=== PATIENT | female | born 1935 | race Caucasian/White ===

== ENCOUNTER 2017-02-28 12:59 | Inpatient (IN) ==
[2017-02-28 13:39] LABS: Basophils # 0.1 K/mcL (0.0-0.2); Basophils % 0.9 %; Eosinophils # 0.1 K/mcL (0.0-0.6); Hematocrit 32.8 % (35.3-44.9); Hemoglobin 10.5 g/dL (11.5-15.4); Immature Granulocytes % 0.1 % (0-4); Lymphocytes # 1.9 K/mcL (0.6-4.6); Lymphocytes % 23.8 %; Mean Corpuscular Hemoglobin 26.1 pg (28.0-33.3); Mean Corpuscular Volume 81.4 fL (83.0-100.0); Mean Platelet Volume 9.5 fL (9.4-12.4); Monocytes # 0.5 K/mcL (0.0-1.3); Monocytes % 5.8 %; Neutrophils # 5.3 K/mcL (1.6-8.9); Platelet Count 285 K/mcL (140-400); Red Blood Count 4.03 M/mcL (3.82-4.97); Red Cell Distribution Width 16.6 % (11.5-14.5); Segmented Neutrophils % 68.4 %
[2017-02-28 13:51] LABS: BUN/Creatinine Ratio 12 (6-26); Blood Urea Nitrogen 11 mg/dL (7-20); Calcium 8.8 mg/dL (8.6-10.8); Carbon Dioxide 25 mEq/L (19-29); Chloride 109 mEq/L (98-109); Glucose 142 mg/dL (70-99); Osmolality,Calculated 292 (280-300); Sodium 140 mEq/L (136-145); eGFR For African Americans > 60 (> 60); eGFR For Non-African Americans 57 (> 60)
[2017-02-28 14:01] LABS: INR 1.1; Prothrombin Time 12.4 Seconds (9.4-12.1)
[2017-02-28 14:04] LABS: Activated Partial Thrombo Time 24.7 Seconds (26.0-36.0)
--- NOTE | 2017-02-28 14:45 | Emergency Department Note ---
Disposition Clinical Impression: Dizziness CHF (congestive heart failure) Qualifiers: Congestive heart failure type: unspecified congestive heart failure type Congestive heart failure chronicity: acute Qualified Code(s): I50.9 - Heart failure, unspecified Disposition: Admitted As Inpatient Condition: Fair Referrals: Franci Jones MD [Primary Care Provider] - Forms: Work/School Release, ED Satisfaction Letter Dizziness HPI - General Chief Complaint: ED General Medical Stated Complaint: Near Syncope Time Seen by Provider: 02/28/17 13:34 Source: patient Limitations: no limitations Nursing Notes Reviewed: Yes Vital Signs Reviewed: Yes - History of Present Illness HPI Narrative: Presents with complaint of lightheadedness which has been going on for at least several days but significantly worse this morning to the point that she almost passed out. She specifically denies any vertigo. No numbness or weakness of the extremities, slurred speech, facial droop or confusion. She has had intermittent chest pain and shortness of breath the last several months and this has been evaluated with stress testing in the past. She denies any fevers. Has had intermittent diarrhea but none in the last several days. No vomiting. She did eat breakfast and lunch today. No pain or swelling currently of the lower extremities but does get intermittent swelling of the lower extremities. Social history: No smoking. Is here with her - Related Data Allergies Allergy/AdvReac Type Severity Reaction Status Date / Time Penicillins Allergy Anaphylaxis Verified 02/28/17 13:00 Review of Systems: Constitutional: No fever Vision: No blurred vision ENT: No rhinorrhea Respiratory: No cough Allergic: No allergies : No blood in urine GI: No blood in stool Hematologic: No bruising Dermatologic: No skin rash Musculoskeletal: No pain in the extremities Neuro: No numbness of the extremities Past Medical History - Past Medical History Medical history: Reports: arthritis, COPD, coronary artery disease, hyperlipidemia, hypertension Psychiatric history: Reports: no psych history - Social History Smoking Status: Never smoker Smokeless Tobacco Status: No Alcohol use: Reports: none Drug use: Reports: none Physical Exam CONSTITUTIONAL: Well-appearing; well-nourished; A&O X3, in no apparent distress HEAD: Normocephalic; atraumatic. EYES: PERRL, EOMI, no scleral icterus NOSE: The nose is normal in appearance without rhinorrhea NECK: Supple without rigidity, no RAI RESP: Normal chest excursion with respiration; breath sounds clear and equal bilaterally; no wheezes, rhonchi, or rales CARD: Regular rhythm, without murmurs, rub or gallop ABD: Non-distended; non-tender, soft, without rigidity, rebound or guarding SKIN: Normal for age and race; warm and dry; no apparent lesions, no rash NEUROLOGICAL: Patient is alert and oriented times three. Cranial nerves III- XII are intact. Sensory and motor functions are intact. Strength is 5/5 for flexion and extension in all 4 extremities. Patellar DTRS are equal and intact. Finger to nose testing is equal and normal bilaterally. EXTREMITIES: Pulses are 2 plus and equal times 4 extremities, no peripheral edema or calf muscle pain. - General Limitations: no limitations General appearance: alert, in no apparent distress Course Vital Signs Temperature 97.6 F 02/28/17 13:01 Pulse Rate 73 02/28/17 13:01 Respiratory Rate 18 02/28/17 13:01 Blood Pressure 124/70 02/28/17 13:01 O2 Sat by Pulse Oximetry 96 02/28/17 13:01 Temperature 97.6 F 02/28/17 13:01 Pulse Rate 65 02/28/17 16:43 Respiratory Rate 18 02/28/17 16:43 Blood Pressure 147/118 02/28/17 16:43 O2 Sat by Pulse Oximetry 95 02/28/17 16:43 Oxygen Delivery Oxygen Delivery Room Air Dizziness - MDM Narrative Medical decision making narrative: Patient does have labs pending, EKG, chest x-ray. He is being watched on clinical therapist and pulse oximeter. Initial labs reviewed. CXR c/w CHF. BNP pending. 1445 I did review the EKG showing a paced rhythm with rate of 64 1447 Patient does have a chest x-ray showing congestive heart failure as well as elevated BNP and is treated with Lasix and nitroglycerin paste and I did speak with Dr. Garcia about hospital admission. Consideration of inpatient echocardiogram. 1706 - Lab Data Result diagrams: 02/28/17 13:31 02/28/17 13:31 Lab Results 02/28/17 02/28/17 02/28/17 Range/Units 13:31 13:31 13:31 WBC 7.8 (4.3-11.1) K/mcL RBC 4.03 (3.82-4.97) M/mcL Hgb 10.5 L (11.5-15.4) g/dL Hct 32.8 L (35.3-44.9) % MCV 81.4 L (83.0-100.0) fL MCH 26.1 L (28.0-33.3) pg MCHC 32.0 (31.6-35.5) g/dL RDW 16.6 H (11.5-14.5) % Plt Count 285 (140-400) K/mcL MPV 9.5 (9.4-12.4) fL Immature Gran % 0.1 (0-4) % Seg Neutrophils % 68.4 % Lymphocytes % 23.8 % Monocytes % 5.8 % Eosinophils % 1.0 % Basophils % 0.9 % Neutrophils # 5.3 (1.6-8.9) K/mcL Lymphocytes # 1.9 (0.6-4.6) K/mcL Monocytes # 0.5 (0.0-1.3) K/mcL Eosinophils # 0.1 (0.0-0.6) K/mcL Basophils # 0.1 (0.0-0.2) K/mcL PT 12.4 H (9.4-12.1) Seconds INR 1.1 APTT 24.7 L (26.0-36.0) Seconds Sodium 140 (136-145) mEq/L Potassium 4.0 (3.5-4.5) mEq/L Chloride 109 (98-109) mEq/L Carbon Dioxide 25 (19-29) mEq/L BUN 11 (7-20) mg/dL Creatinine 0.94 (0.57-1.11) mg/dL Est GFR ( Amer) > 60 (> 60) Est GFR (Non-Af Amer) 57 L (> 60) BUN/Creatinine Ratio 12 (6-26) Glucose 142 H (70-99) mg/dL Calculated Osmolality 292 (280-300) Calcium 8.8 (8.6-10.8) mg/dL Troponin I (0-0.03) ng/mL B-Natriuretic Peptide (0-100) pg/mL 02/28/17 02/28/17 Range/Units 13:31 13:31 WBC (4.3-11.1) K/mcL RBC (3.82-4.97) M/mcL Hgb (11.5-15.4) g/dL Hct (35.3-44.9) % MCV (83.0-100.0) fL MCH (28.0-33.3) pg MCHC (31.6-35.5) g/dL RDW (11.5-14.5) % Plt Count (140-400) K/mcL MPV (9.4-12.4) fL Immature Gran % (0-4) % Seg Neutrophils % % Lymphocytes % % Monocytes % % Eosinophils % % Basophils % % Neutrophils # (1.6-8.9) K/mcL Lymphocytes # (0.6-4.6) K/mcL Monocytes # (0.0-1.3) K/mcL Eosinophils # (0.0-0.6) K/mcL Basophils # (0.0-0.2) K/mcL PT (9.4-12.1) Seconds INR APTT (26.0-36.0) Seconds Sodium (136-145) mEq/L Potassium (3.5-4.5) mEq/L Chloride (98-109) mEq/L Carbon Dioxide (19-29) mEq/L BUN (7-20) mg/dL Creatinine (0.57-1.11) mg/dL Est GFR ( Amer) (> 60) Est GFR (Non-Af Amer) (> 60) BUN/Creatinine Ratio (6-26) Glucose (70-99) mg/dL Calculated Osmolality (280-300) Calcium (8.6-10.8) mg/dL Troponin I 0.01 (0-0.03) ng/mL B-Natriuretic Peptide 347 H (0-100) pg/mL
[2017-02-28] MEDS ORDERED: Furosemide 40 MG/4 ML VIAL IVP ONE (16:45)
[2017-02-28] MEDS ORDERED: Nitroglycerin 1 INCH/GM PACKET TP ONE (16:45)
[2017-02-28] MEDS ORDERED: *HR* Morphine 2 MG/ML SYRINGE IVP PRN (17:31)
[2017-02-28] MEDS ORDERED: Naloxone 0.4 MG/ML INJ IVP PRN (17:31)
[2017-02-28] MEDS ORDERED: Ondansetron 4 MG/2 ML VIAL IVP PRN (17:31)
[2017-02-28] MEDS ORDERED: Nitroglycerin 0.4 MG TAB.SUBL SL PRN (17:37)
[2017-02-28] MEDS ORDERED: Aspirin 81 MG TAB.CHEW PO SCH (17:45)
[2017-02-28 17:49] LABS: Magnesium 1.6 mg/dL (1.6-2.6)
[2017-02-28] MEDS ORDERED: Aspirin 325 MG TABLET ONE (18:34)
[2017-02-28] MEDS: *HR* Heparin 5,000 UNIT/ML VIAL SQ SCH (18:43)
[2017-02-28] MEDS: Famotidine 20 MG/2 ML VIAL IVP SCH (18:44)
[2017-02-28] MEDS: Aspirin 325 MG TABLET PO SCH (18:44)
[2017-02-28] MEDS: Valsartan 80 MG TABLET PO SCH (19:12)
--- NOTE | 2017-02-28 19:30 | Internal Med History&Physical ---
Date of Encounter: 02/28/17 Time of Encounter: 18:00 Assessment and Plan (1) Dizziness Current visit: Yes Status: Acute Near syncope with dizziness and lightheadedness - unclear etiology Possible arrhythmia or TIA or vertigo EKG - paced rhythm no acute ST-T changes Troponin - negative, we will trend Chest x-ray - pulmonary edema Echocardiogram pending, CT head - pending Labs in a.m. Cardiac telemetry (2) CHF (congestive heart failure) Current visit: Yes Status: Acute New onset CHF unspecified with pulmonary edema Continue IV Lasix, metoprolol, started valsartan today Restriction, strict I's and O's, daily weight BN peptide of 347 Troponin 0.01, will trend EKG paced rhythm no acute ST-T changes Cardiac telemetry Qualifiers: Congestive heart failure type: unspecified congestive heart failure type Congestive heart failure chronicity: acute Qualified Code(s): I50.9 - Heart failure, unspecified (3) CAD (coronary artery disease) Current visit: Yes Status: Chronic Coronary artery disease status post stents, stable Continue aspirin and statin Qualifiers: Coronary Disease-Associated Artery/Lesion type: unspecified vessel or lesion type [place] vs. transplanted heart: [place] heart Associated angina: without angina Qualified Code(s): I25.10 - Atherosclerotic heart disease of [place] coronary artery without angina pectoris (4) Hypertension Current visit: Yes Status: Chronic Essential hypertension, controlled, continue home meds, monitor Qualifiers: Hypertension type: essential hypertension Qualified Code(s): I10 - Essential (primary) hypertension (5) COPD (chronic obstructive pulmonary disease) Current visit: Yes Status: Chronic Not in exacerbation, stable Continue Flovent Qualifiers: COPD type: unspecified COPD Qualified Code(s): J44.9 - Chronic obstructive pulmonary disease, unspecified (6) Hyperlipidemia Current visit: Yes Status: Chronic Continue statin Qualifiers: Hyperlipidemia type: unspecified Qualified Code(s): E78.5 - Hyperlipidemia , unspecified (7) DVT prophylaxis Current visit: Yes Status: Acute Continue heparin subcutaneous Internal Medicine - H&P: HPI Chief complaint: Dizziness Admitted From: Emergency Dept History of present illness: Ms. Le is a 82 year old female with past medical history of COPD, arthritis , coronary artery disease, hyperlipidemia, hypertension and status post pacemaker. She presents to the ED with complaints of dizziness and lightheadedness. Patient states symptoms have been going on for the past few days but got worse this morning where she almost passed out. No syncope. Patient denies any weakness in extremities or slurred speech or facial droop and confusion. She did have some mild chest pain and mild shortness of breath, but this is now resolved. Patient denies abdominal pain denies vomiting or diarrhea or any other symptoms. Patient says symptoms are worse when she is walking or trying to stand up. Symptoms seemed to gradually resolve on their own. On examination patient is awake and alert. Not in any distress. Able to answer questions appropriately. and son are at bedside. Patient is being admitted for dizziness and lightheadedness and near syncope. She will need cardiac workup. Patient and family have been explained about her condition and plan of care. Understood and agreed. No unanswered questions. CODE STATUS full code. Past Med Surg Social Fam HX - Past Medical History Medical history: arthritis, COPD, coronary artery disease, hyperlipidemia, hypertension, migraine Psychiatric history: no psych history - Past Surgical History Surgical History: appendectomy, cholecystectomy, hysterectomy - Social History Smoking Status: Never smoker Smokeless Tobacco Status: No Alcohol use: none Drug use: none Internal Medicine - H&P: Meds ALPRAZolam [Xanax 1 MG Tablet] 1 mg PO BID 02/28/17 [History] Aspirin 325 mg PO HS 02/28/17 [History] Atorvastatin Calcium [Lipitor] 20 mg PO HS 02/28/17 [History] Diltiazem HCl [Diltiazem 24Hr Cd] 180 mg PO DAILY 02/28/17 [History] Donepezil HCl [Aricept] 5 mg PO HS 02/28/17 [History] FLUoxetine HCl [Fluoxetine HCl] 10 mg PO QAM 02/28/17 [History] Fluticasone Propionate [Flovent Hfa] 2 puff IH BID 02/28/17 [History] Furosemide [Lasix] 20 mg PO DAILY PRN 02/28/17 [History] Metoprolol [Lopressor] 12.5 mg PO BID 02/28/17 [History] [place]-3/Dha/Epa/Fish Oil [Fish Oil 1,000 mg Softgel] 1,000 mg PO DAILY 02/28/17 [History] Omeprazole [PriLOSEC] 20 mg PO DAILY 02/28/17 [History] Potassium Chloride [K-Tab ER] 20 meq PO DAILY 02/28/17 [History] Allergies Penicillins Allergy (Verified 02/28/17 13:00) Anaphylaxis All Systems PM: A 10-system review of systems was performed and is negative for pertinent findings except as documented above in the HPI. - Constitutional Constitutional: as per HPI, weakness, no fatigue, no fever(s) - EENT Eyes: no blurry vision - Cardiovascular Cardiovascular ROS IM: other (Near syncope), no chest pain, no diaphoresis, no dyspnea, no dyspnea on exertion, no orthopnea - Respiratory Respiratory: no cough, no dyspnea, no hemoptysis, no dyspnea on exertion, no chest congestion - Gastrointestinal Gastrointestinal: no abdominal pain, no cramping, no diarrhea, no nausea, no vomiting - Neurological Neurological ROS: dizziness, no abnormal gait, no abnormal speech, no loss of vision, no numbness, no tingling - Constitutional Vitals: Temp Pulse Resp BP Pulse Ox 97.6 F 64 16 125/76 94 02/28/17 18:30 02/28/17 18:30 02/28/17 18:30 02/28/17 18:30 02/28/17 18:30 General appearance: Present: A&O X 3, pleasant, no acute distress, answers questions appropriately - Head Head exam: Present: atraumatic - Eye Eye exam: Present: EOMI - Neck Neck exam general surgery: Present: supple - Respiratory Respiratory exam: Present: CTAB. Absent: rales, rhonchi, wheezes - Cardiovascular Cardiovascular exam: Present: RRR, +S1, +S2 - GI/Abdominal GI/Abdominal exam: Present: soft, no peritoneal signs. Absent: distended, firm , guarding, tenderness - Extremities Exam Extremities exam: Present: radial pulses palpable and symetrical. Absent: cyanotic, tenderness - Neurological Exam Neurological exam: Present: alert, oriented X3, no focal deficits Internal Med - H&P Results - Labs CBC & Chem 7: 02/28/17 13:31 02/28/17 13:31
[2017-02-28] MEDS: Beclomethasone 80mcg MDI IH SCH (21:20)
[2017-03-01 01:37] LABS: Basophils # 0.1 K/mcL (0.0-0.2); Basophils % 0.7 %; Eosinophils # 0.1 K/mcL (0.0-0.6); Eosinophils % 1.9 %; Hematocrit 32.3 % (35.3-44.9); Hemoglobin 10.2 g/dL (11.5-15.4); Immature Granulocytes % 0.1 % (0-4); Lymphocytes % 29.8 %; Mean Corpuscular HGB Conc 31.6 g/dL (31.6-35.5); Mean Corpuscular Hemoglobin 25.6 pg (28.0-33.3); Mean Corpuscular Volume 81.2 fL (83.0-100.0); Mean Platelet Volume 9.6 fL (9.4-12.4); Monocytes # 0.5 K/mcL (0.0-1.3); Monocytes % 7.3 %; Neutrophils # 4.1 K/mcL (1.6-8.9); Platelet Count 258 K/mcL (140-400); Red Blood Count 3.98 M/mcL (3.82-4.97); Red Cell Distribution Width 16.4 % (11.5-14.5); Segmented Neutrophils % 60.2 %
[2017-03-01 01:52] LABS: BUN/Creatinine Ratio 15 (6-26); Blood Urea Nitrogen 14 mg/dL (7-20); Calcium 8.9 mg/dL (8.6-10.8); Carbon Dioxide 25 mEq/L (19-29); Chloride 107 mEq/L (98-109); Glucose 105 mg/dL (70-99); Osmolality,Calculated 291 (280-300); Potassium 3.8 mEq/L (3.5-4.5); Sodium 140 mEq/L (136-145); eGFR For African Americans > 60 (> 60); eGFR For Non-African Americans 56 (> 60)
[2017-03-01 01:53] LABS: Chol/HDL Ratio 4.5 (0-4.9)
[2017-03-01] MEDS ORDERED: Acetaminophen 325 MG TABLET PO PRN (04:20)
[2017-03-01] MEDS: *HR* Heparin 5,000 UNIT/ML VIAL SQ SCH ×2 (05:46→16:41)
[2017-03-01] MEDS: Famotidine 20 MG/2 ML VIAL IVP SCH (05:46)
[2017-03-01] MEDS: FLUoxetine HCl 10 MG CAPSULE PO SCH (07:59)
[2017-03-01] MEDS: Valsartan 80 MG TABLET PO SCH (07:59)
[2017-03-01] MEDS: Diltiazem CD (24hr) 180 MG CAPSULE PO SCH (07:59)
[2017-03-01] MEDS: Furosemide 40 MG/4 ML VIAL IVP SCH ×2 (07:59→16:41)
[2017-03-01] MEDS: Aspirin 325 MG TABLET PO SCH (08:00)
[2017-03-01 09:16] LABS: Bilirubin,Urine Negative (Negative); Blood,Urine Negative (Negative); Clarity,Urine Cloudy (Clear); Color,Urine Yellow (Yellow); Glucose,Urine (UA) Normal (Normal); Ketones,Urine Negative (Negative); Leukocyte Esterase,Urine Small (Negative); Nitrite,Urine Negative (Negative); PH,Urine 6.5 pH Units (5.0-8.0); Protein,Urine Negative (Neg-Trace); Specific Gravity,Urine 1.013 (1.010-1.025); Urobilinogen,Urine Normal (Normal)
[2017-03-01 09:18] LABS: Bacteria,Urine Many per hpf (None-Few); Hyaline Casts,Urine None Seen per lpf (None-Few); RBC,Urine 0-3 per hpf (0-3); Squamous Epithelial Cell,Urine Many per lpf (None-Few); WBC,Urine 30-50 per hpf (0-3)
[2017-03-01] MEDS: Beclomethasone 80mcg MDI IH SCH ×2 (12:40→19:55)
--- NOTE | 2017-03-01 13:22 | Internal Med Progress Note ---
Date of Encounter: 03/01/17 Time of Encounter: 13:21 - Assessment and plan (1) CHF (congestive heart failure) Current Visit: Yes Status: Acute Assessment and plan: Acute CHF systolic versus diastolic Chest x-ray shows pulmonary vascular congestion and interstitial edema compatible with CHF Echocardiogram from 2013 shows a normal ejection fraction of 60% Continue Lasix IV twice a day, strict I's and O's and daily weight Echocardiogram was ordered Qualifiers: Congestive heart failure type: unspecified congestive heart failure type Congestive heart failure chronicity: acute Qualified Code(s): I50.9 - Heart failure, unspecified (2) Hypertension Current Visit: Yes Status: Chronic Assessment and plan: Stable Qualifiers: Hypertension type: essential hypertension Qualified Code(s): I10 - Essential (primary) hypertension (3) COPD (chronic obstructive pulmonary disease) Current Visit: Yes Status: Chronic Assessment and plan: No exacerbation Continue nebulizers as needed Qualifiers: COPD type: unspecified COPD Qualified Code(s): J44.9 - Chronic obstructive pulmonary disease, unspecified (4) CAD (coronary artery disease) Current Visit: Yes Status: Chronic Assessment and plan: Continue aspirin, Lipitor and metoprolol Had a pacemaker placed back in September, continue diltiazem Qualifiers: Coronary Disease-Associated Artery/Lesion type: unspecified vessel or lesion type [place] vs. transplanted heart: [place] heart Associated angina: without angina Qualified Code(s): I25.10 - Atherosclerotic heart disease of [place] coronary artery without angina pectoris (5) Hyperlipidemia Current Visit: Yes Status: Chronic Qualifiers: Hyperlipidemia type: unspecified Qualified Code(s): E78.5 - Hyperlipidemia , unspecified - Subjective Interval history: The patient continues to feel short of breath, denies any chest pain, feels very weak. No fever, has been coughing up some yellowish phlegm on and off but lately has been whitish, denies any abdominal pain, no dysuria, no diarrhea - Constitutional Vitals: Temp Pulse Resp BP Pulse Ox 97.5 F L 68 16 120/64 93 03/01/17 11:48 03/01/17 11:48 03/01/17 11:48 03/01/17 11:48 03/01/17 11:48 General appearance: Present: A&O X 3, pleasant, no acute distress, answers questions appropriately - Head Head exam: Present: atraumatic, normocephalic - Eye Eye exam: Present: PERRL, conjuntiva pink, sclera anicteric Pupils: Present: PERRL - Neck Neck exam general surgery: Present: supple, trachea midline. Absent: lymphadenopathy - Respiratory Respiratory exam: Present: CTAB. Absent: accessory muscle use, rales, rhonchi, wheezes - Cardiovascular Cardiovascular exam: Present: RRR, +S1, +S2. Absent: diastolic murmur, gallop, rubs, systolic murmur - GI/Abdominal GI/Abdominal exam: Present: normal bowel sounds, soft, no peritoneal signs. Absent: distended, tenderness - Extremities Exam Extremities exam: Present: pedal edema (+1 pitting edema in both lower extremities), warm, radial pulses palpable and symetrical. Absent: calf tenderness, cyanotic - Neurological Exam Neurological exam: Present: CN II-XII intact, oriented X3, no focal deficits. Absent: pronater drift, facial droop, speech deficit - Skin Skin exam: Present: dry, intact Internal Medicine: Result - Labs CBC & Chem 7: 03/01/17 01:29 03/01/17 01:29 Labs: Short CBC 03/01/17 Range/Units 01:29 WBC 6.8 (4.3-11.1) K/mcL Hgb 10.2 L (11.5-15.4) g/dL Hct 32.3 L (35.3-44.9) % Plt Count 258 (140-400) K/mcL Neutrophils # 4.1 (1.6-8.9) K/mcL BMP 03/01/17 01:29 Sodium 140 Potassium 3.8 Chloride 107 Carbon Dioxide 25 BUN 14 Creatinine 0.95 Glucose 105 H Calcium 8.9 Cardiac Enzymes 02/28/17 03/01/17 03/01/17 Range/Units 20:04 01:29 05:04 Troponin I 0.01 0.03 0.01 (0-0.03) ng/mL Urine 03/01/17 Range/Units 08:22 Urine Color Yellow (Yellow) Urine Clarity Cloudy A (Clear) Urine pH 6.5 (5.0-8.0) pH Units Ur Specific [place] 1.013 (1.010-1.025) Urine Protein Negative (Neg-Trace) mg/dL Urine Glucose (UA) Normal (Normal) mg/dL - ABG Interpretation ABG results: PT/INR, D-dimer PT 12.4 Seconds (9.4-12.1) H 02/28/17 13:31 - Impressions Impressions Head CT 02/28/17 19:58 IMPRESSION: No acute intracranial hemorrhage or mass effect. Mild- moderate cerebral chronic small vessel ischemic change. D/ / Rad Hoang MD / Rad Hoang MD Interpreting Provider: Rad Hoang MD Consult Discharge Plan - Plan Referrals: Franci Jones MD [Primary Care Provider] - 03/04/17 2:30 pm
--- NOTE | 2017-03-01 17:15 | Electrocardiograph Report ---
[place] [id number] Test Date: 2017-02-28 Pat Name: Asmita Le Department: 105 Room: 3B54 Gender: F Mat Tester: : [id number] Requested By: Ang Campoverde Order Number: [id number] Reading MD: Franci Akins Measurements Intervals [place] Rate: 64 P: [place]: 0 QRS: -28 QRSD: 168 T: 69 QT: 464 QTc: 474 Interpretive Statements ELECTRONIC VENTRICULAR PACEMAKER ABNORMAL RHYTHM ECG Electronically Signed On 03-01-2017 17:14:00 EDT by Franci Akins
[2017-03-02 03:28] VITALS: BP 125/74
[2017-03-02] MEDS ORDERED: Famotidine 20 MG/2 ML VIAL IVP SCH (06:00)
[2017-03-02] MEDS: *HR* Heparin 5,000 UNIT/ML VIAL SQ SCH (06:10)
--- NOTE | 2017-03-02 07:48 | Discharge Summary ---
Date of Encounter: 03/02/17 Time of Encounter: 07:44 - Discharge Diagnosis (1) CHF (congestive heart failure) Priority: Primary Status: Acute Comments: Acute CHF likely related to moderate aortic regurgitation in combination with moderate tricuspid regurgitation/atrial fibrillation with indeterminate diastolic function medical cardiac exam showed an ejection fraction of 65% with mild concentric left ventricular hypertrophy, severely dilated left atrium Qualifiers: Congestive heart failure type: diastolic Congestive heart failure chronicity: acute Qualified Code(s): I50.31 - Acute diastolic (congestive) heart failure (2) Hypertension Priority: Secondary Status: Chronic Qualifiers: Hypertension type: essential hypertension Qualified Code(s): I10 - Essential (primary) hypertension (3) COPD (chronic obstructive pulmonary disease) Priority: Secondary Status: Chronic Qualifiers: COPD type: unspecified COPD Qualified Code(s): J44.9 - Chronic obstructive pulmonary disease, unspecified (4) CAD (coronary artery disease) Priority: Secondary Status: Chronic Qualifiers: Coronary Disease-Associated Artery/Lesion type: unspecified vessel or lesion type [place] vs. transplanted heart: [place] heart Associated angina: without angina Qualified Code(s): I25.10 - Atherosclerotic heart disease of [place] coronary artery without angina pectoris (5) Hyperlipidemia Priority: Secondary Status: Chronic Qualifiers: Hyperlipidemia type: unspecified Qualified Code(s): E78.5 - Hyperlipidemia , unspecified - Discharge Medications Prescriptions: Furosemide [Lasix] 20 mg PO BID PRN #60 tablet PRN Reason: Edema Potassium Chloride [K-Tab ER] 20 meq PO DAILY #30 tablet.er Home Medications: ALPRAZolam [Xanax 1 MG Tablet] 1 mg PO BID 02/28/17 [History] Aspirin 325 mg PO HS 02/28/17 [History] Atorvastatin Calcium [Lipitor] 20 mg PO HS 02/28/17 [History] Diltiazem HCl [Diltiazem 24Hr Cd] 180 mg PO DAILY 02/28/17 [History] Donepezil HCl [Aricept] 5 mg PO HS 02/28/17 [History] FLUoxetine HCl [Fluoxetine HCl] 10 mg PO QAM 02/28/17 [History] Fluticasone Propionate [Flovent Hfa] 2 puff IH BID 02/28/17 [History] Metoprolol [Lopressor] 12.5 mg PO BID 02/28/17 [History] [place]-3/Dha/Epa/Fish Oil [Fish Oil 1,000 mg Softgel] 1,000 mg PO DAILY 02/28/17 [History] Omeprazole [PriLOSEC] 20 mg PO DAILY 02/28/17 [History] Furosemide [Lasix] 20 mg PO BID PRN #60 tablet 03/02/17 [Rx] Potassium Chloride [K-Tab ER] 20 meq PO DAILY #30 tablet.er 03/02/17 [Rx] Allergies/Adverse Reactions: Allergies Penicillins Allergy (Verified 02/28/17 13:00) Anaphylaxis Procedures/tests Complete & Pending: Procedures Performed prior 72 hours Category Date Time Status CT head/brain wo con [CT] Routine Cat Scan 02/28/17 19:58 Completed EV echocardiogram Routine Y 03/01/17 17:35 Completed Date of admission: 02/28/17 17:31 Primary care physician: Franci Damon O - Patient Status Disposition: Home Health Service Condition: Fair Overall status at discharge: patient is progressing back to baseline - Discharge Instructions Follow Up With: Franci Jones MD [Primary Care Provider] - 03/04/17 2:30 pm Additional Instructions: Follow-up with primary care physician within the next 7 days. Follow-up with cardiology within the next 2 weeks. Increased dose of Lasix To 20 mg twice a day, continue potassium supplements. Avoid excessive fluid intake - Diet and Activity Activity: increase activity as tolerated Diet: low fat, low cholesterol Hospital course: Ms. Le is a 82 year old female with past medical history of COPD not oxygen dependent, arthritis, coronary artery disease, atrial fibrillation not on anticoagulation currently only on aspirin, hyperlipidemia, hypertension and status post pacemaker. She presented to the ED with complaints of dizziness and lightheadedness. Patient stated symptoms have been going on for the past few days but got worse and almost passed out. No syncope. Patient denied any weakness in extremities or slurred speech or facial droop and confusion. She did have some mild chest pain and mild shortness of breath, but this has resolved. Chest x-ray showed vascular congestion: The patient was started on Lasix and her condition improved considerably. At home she takes Lasix 20 mg as needed only daily. During hospitalization the patient became confused but now is back at baseline, she says that this happens every time that she is in the hospital and gets better at home. The echocardiogram showed moderate tricuspid regurgitation/atrial fibrillation with indeterminate diastolic function medical cardiac exam showed an ejection fraction of 65% with mild concentric left ventricular hypertrophy, severely dilated left atrium. The patient is a stable to be discharged home on an increased dose of Lasix 20 mg twice a day - Time Spent with Patient Total time spent providing and/or coordinating discharge services: Greater than 30 minutes (40 min) - Constitutional Vitals: Temp Pulse Resp BP Pulse Ox 98.7 F 66 15 125/74 95 03/02/17 03:26 03/02/17 03:26 03/02/17 03:26 03/02/17 03:03/02/17 03:26 General appearance: Present: A&O X 3, pleasant, no acute distress, answers questions appropriately - Head Head exam: Present: atraumatic, normocephalic - Eye Eye exam: Present: PERRL, conjuntiva pink, sclera anicteric Pupils: Present: PERRL - Neck Neck exam general surgery: Present: supple, trachea midline. Absent: lymphadenopathy - Respiratory Respiratory exam: Present: CTAB. Absent: accessory muscle use, rales, rhonchi, wheezes - Cardiovascular Cardiovascular exam: Present: RRR, +S1, +S2, systolic murmur. Absent: diastolic murmur, gallop, rubs - GI/Abdominal GI/Abdominal exam: Present: normal bowel sounds, soft, no peritoneal signs. Absent: distended, tenderness - Extremities Exam Extremities exam: Present: warm, radial pulses palpable and symetrical. Absent : calf tenderness, cyanotic, pedal edema - Neurological Exam Neurological exam: Present: CN II-XII intact, oriented X3, no focal deficits. Absent: pronater drift, facial droop, speech deficit - Skin Skin exam: Present: dry, intact
--- NOTE | 2017-03-02 07:54 | Physician Discharge Referral ---
Home Health/Hosp Referral Info Transfer to: Home Health Provider in Charge Post Discharge: PCP - Diagnosis (1) CHF (congestive heart failure) Status: Acute (2) Hypertension Status: Chronic (3) COPD (chronic obstructive pulmonary disease) Status: Chronic (4) CAD (coronary artery disease) Status: Chronic (5) Hyperlipidemia Status: Chronic - Respiratory Orders Smoking Cessation: Smoking cessation has been advised. For more information, call the [place] Tobacco Quit Line at 9-142-UUYQ-NOW. - Diet/Nutrition Diet/Nutrition Orders: No Added Salt (JOSE ENRIQUE) - Services Needed Following services are medically necessary services: Physical Therapy Home Care Orders: Follow-up with primary care physician within the next 7 days. Follow-up with cardiology within the next 2 weeks. Increased dose of Lasix To 20 mg twice a day, continue potassium supplements. Avoid excessive fluid intake - Transfer Medications Prescriptions: Furosemide [Lasix] 20 mg PO BID PRN #60 tablet PRN Reason: Edema Potassium Chloride [K-Tab ER] 20 meq PO DAILY #30 tablet.er Home Medications: ALPRAZolam [Xanax 1 MG Tablet] 1 mg PO BID 02/28/17 [History] Aspirin 325 mg PO HS 02/28/17 [History] Atorvastatin Calcium [Lipitor] 20 mg PO HS 02/28/17 [History] Diltiazem HCl [Diltiazem 24Hr Cd] 180 mg PO DAILY 02/28/17 [History] Donepezil HCl [Aricept] 5 mg PO HS 02/28/17 [History] FLUoxetine HCl [Fluoxetine HCl] 10 mg PO QAM 02/28/17 [History] Fluticasone Propionate [Flovent Hfa] 2 puff IH BID 02/28/17 [History] Metoprolol [Lopressor] 12.5 mg PO BID 02/28/17 [History] [place]-3/Dha/Epa/Fish Oil [Fish Oil 1,000 mg Softgel] 1,000 mg PO DAILY 02/28/17 [History] Omeprazole [PriLOSEC] 20 mg PO DAILY 02/28/17 [History] Furosemide [Lasix] 20 mg PO BID PRN #60 tablet 03/02/17 [Rx] Potassium Chloride [K-Tab ER] 20 meq PO DAILY #30 tablet.er 03/02/17 [Rx] Allergies/Adverse Reactions: Allergies Penicillins Allergy (Verified 02/28/17 13:00) Anaphylaxis Certification: Further, I certify that my clinical findings support that this patient is homebound (i.e. absences from home require considerable and taxing effort and are for medical reasons or sikhism services or infrequently or short duration when for other reasons) because: Homebound Reason: Patient requires assistance of a person or device to safely leave home Attestation: My signature below is to certify that this patient is under my care and that I, or nurse practitioner, or a physician's addictions counselor assistant working with me, has a face-to -face encounter with this patient.
[2017-03-02] MEDS: Diltiazem CD (24hr) 180 MG CAPSULE PO SCH (07:58)
[2017-03-02] MEDS: Aspirin 325 MG TABLET PO SCH (07:58)
[2017-03-02] MEDS: FLUoxetine HCl 10 MG CAPSULE PO SCH (07:58)
[2017-03-02] MEDS: Valsartan 80 MG TABLET PO SCH (07:58)
[2017-03-02] MEDS: Furosemide 40 MG/4 ML VIAL IVP SCH (07:59)
[2017-03-02] MEDS: Beclomethasone 80mcg MDI IH SCH (10:13)
== END 2017-03-02 10:44 | disposition home health service (06) | DRG 293 ==
LOC: 3BNU 12:59 → EMEROO 12:59 → SUATTDRO 17:31 → 3BNU 17:51
PROVIDERS: ADMIT Family Medicine; ATTEND Internal Medicine

== ENCOUNTER 2017-06-01 13:36 | Inpatient (IN) ==
[2017-06-01] MEDS ORDERED: Pantoprazole 40 MG VIAL IVP ONE (16:59)
[2017-06-01] MEDS: 0.9 % Sodium Chloride 1,000 ML IVC SCH (17:24)
[2017-06-01] MEDS: Pantoprazole 40 MG in 0.9 % Sodium Chloride Mini Bag 100 ML IVC SCH ×2 (17:25→22:06)
--- NOTE | 2017-06-01 17:25 | Internal Med History&Physical ---
Date of Encounter: 06/01/17 Time of Encounter: 17:22 Assessment and Plan (1) Coffee ground emesis Current visit: Yes Status: Acute Was sufficient on protonix drip. Follow H&H Q6 hours. gastroenterology consultation. (2) Atrial fibrillation with RVR Current visit: Yes Status: Acute Hold eloquis. Will give digoxin and fluid for rate control (3) UTI (urinary tract infection) Current visit: Yes Status: Acute Meropenem Qualifiers: Qualified Code(s): N39.0 - Urinary tract infection, site not specified; R31.9 - Hematuria, unspecified; R31.9 - Hematuria, unspecified (4) Aspiration pneumonia Current visit: Yes Status: Acute Meropenem Qualifiers: Qualified Code(s): J69.0 - Pneumonitis due to inhalation of food and vomit Internal Medicine - H&P: HPI Chief complaint: coffee ground emesis History of present illness: Ms. 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 There is no mention of vomiting of fresh blood. She has been more lethargic. She is on anticoagulant eloquis. After these episodes of vomiting patient was noted to be coughing. Workup in outside emergency room was suggestive of UTI possible aspiration pneumonia and sepsis. Patient is being transferred to our facility for further GI workup Past Med Surg Social Fam HX - Past Medical History Medical history: arthritis, atrial fibrillation, COPD, coronary artery disease, CVA, hyperlipidemia, hypertension, migraine, other Psychiatric history: depression - Past Surgical History Surgical History: appendectomy, cataract, cholecystectomy, hysterectomy, pacemaker/AICD, tracheostomy - Social History Smoking Status: Never smoker Smokeless Tobacco Status: No Alcohol use: none Drug use: none Internal Medicine - H&P: Meds ALPRAZolam [Xanax 1 MG Tablet] 1 mg PO BID 02/28/17 [History] Aspirin 325 mg PO HS 02/28/17 [History] Atorvastatin Calcium [Lipitor] 20 mg PO HS 02/28/17 [History] Diltiazem HCl [Diltiazem 24Hr Cd] 180 mg PO DAILY 02/28/17 [History] Donepezil HCl [Aricept] 5 mg PO HS 02/28/17 [History] FLUoxetine HCl [Fluoxetine HCl] 10 mg PO QAM 02/28/17 [History] Fluticasone Propionate [Flovent Hfa] 2 puff IH BID 02/28/17 [History] Metoprolol [Lopressor] 12.5 mg PO BID 02/28/17 [History] [place]-3/Dha/Epa/Fish Oil [Fish Oil 1,000 mg Softgel] 1,000 mg PO DAILY 02/28/17 [History] Omeprazole [PriLOSEC] 20 mg PO DAILY 02/28/17 [History] Furosemide [Lasix] 20 mg PO BID PRN #60 tablet 03/02/17 [Rx] Potassium Chloride [K-Tab ER] 20 meq PO DAILY #30 tablet.er 03/02/17 [Rx] 3 Allergy/AdvReac Type Severity Reaction Status Date / Time Penicillins Allergy Anaphylaxis Verified 02/28/17 13:00 All Systems PM: A 10-system review of systems was performed and is negative for pertinent findings except as documented above in the HPI. Review of systems: 10 point review of systems is negative except for HPI - Constitutional Vitals: Pulse 110 06/01/17 15:42 Exam: Gen.: patient is lethargic cardiac: normal S1 S2 no additional sounds or murmurs chest: few crackles in right base abdomen soft nontender nondistended normal bowel sounds lower extremity no swelling. Neuro: left sided weakness
[2017-06-01 18:00] LABS: Eosinophils % 0.5 %; Hematocrit 32.6 % (35.3-44.9); Hemoglobin 9.9 g/dL (11.5-15.4); Immature Granulocytes % 0.4 % (0-4); Mean Corpuscular HGB Conc 30.4 g/dL (31.6-35.5); Mean Corpuscular Hemoglobin 24.7 pg (28.0-33.3); Mean Corpuscular Volume 81.3 fL (83.0-100.0); Mean Platelet Volume 9.6 fL (9.4-12.4); Monocytes % 8.1 %; Platelet Count 398 K/mcL (140-400); Red Blood Count 4.01 M/mcL (3.82-4.97); Red Cell Distribution Width 18.6 % (11.5-14.5); Segmented Neutrophils % 79.7 %
[2017-06-01 18:01] LABS: Basophils % 0.3 %; Eosinophils # 0.1 K/mcL (0.0-0.6); Lymphocytes # 1.3 K/mcL (0.6-4.6); Neutrophils # 9.6 K/mcL (1.6-8.9)
[2017-06-01 18:12] LABS: BUN/Creatinine Ratio 45 (6-26); Blood Urea Nitrogen 39 mg/dL (7-20); C-Reactive Protein 30 mg/L (Less than 5); Calcium 8.9 mg/dL (8.6-10.8); Carbon Dioxide 24 mEq/L (19-29); Chloride 107 mEq/L (98-109); Glucose 86 mg/dL (70-99); Magnesium 1.8 mg/dL (1.6-2.6); Osmolality,Calculated 303 (280-300); Potassium 3.8 mEq/L (3.5-4.5); Sodium 142 mEq/L (136-145); eGFR For African Americans > 60 (> 60); eGFR For Non-African Americans > 60 (> 60)
[2017-06-01] MEDS: Beclomethasone 40mcg MDI IH SCH (21:19)
[2017-06-01] MEDS ORDERED: *HR* LORazepam 2 MG/ML VIAL IVP ONE (22:56)
[2017-06-01 22:58] LABS: Hematocrit 29.7 % (35.3-44.9); Hemoglobin 8.9 g/dL (11.5-15.4)
[2017-06-01] MEDS: Meropenem 1,000 MG in 0.9 % Sodium Chloride Mini Bag 100 ML IVPB SCH (23:26)
[2017-06-02] MEDS: Pantoprazole 40 MG in 0.9 % Sodium Chloride Mini Bag 100 ML IVC SCH ×2 (03:06→08:21)
[2017-06-02] MEDS: 0.9 % Sodium Chloride 1,000 ML IVC SCH (05:24)
[2017-06-02 06:18] LABS: BUN/Creatinine Ratio 36 (6-26); Blood Urea Nitrogen 31 mg/dL (7-20); Calcium 8.7 mg/dL (8.6-10.8); Carbon Dioxide 21 mEq/L (19-29); Chloride 115 mEq/L (98-109); Glucose 94 mg/dL (70-99); Magnesium 1.6 mg/dL (1.6-2.6); Osmolality,Calculated 302 (280-300); Potassium 3.8 mEq/L (3.5-4.5); Sodium 143 mEq/L (136-145); eGFR For African Americans > 60 (> 60); eGFR For Non-African Americans > 60 (> 60)
[2017-06-02] MEDS: Beclomethasone 40mcg MDI IH SCH ×2 (07:59→22:46)
[2017-06-02 08:53] LABS: Basophils # 0.1 K/mcL (0.0-0.2); Basophils % 0.9 %; Eosinophils # 0.2 K/mcL (0.0-0.6); Eosinophils % 2.3 %; Hematocrit 27.5 % (35.3-44.9); Hemoglobin 8.3 g/dL (11.5-15.4); Immature Granulocytes % 0.2 % (0-4); Immature Platelets 1.9 % (1.1-6.1); Lymphocytes # 1.2 K/mcL (0.6-4.6); Mean Corpuscular HGB Conc 30.2 g/dL (31.6-35.5); Mean Corpuscular Hemoglobin 25.2 pg (28.0-33.3); Mean Corpuscular Volume 83.3 fL (83.0-100.0); Monocytes # 0.7 K/mcL (0.0-1.3); Monocytes % 10.4 %; Neutrophils # 4.3 K/mcL (1.6-8.9); Platelet Count 339 K/mcL (140-400); Red Cell Distribution Width 18.7 % (11.5-14.5); Segmented Neutrophils % 67.2 %
[2017-06-02 11:37] LABS: Hematocrit 28.5 % (35.3-44.9); Hemoglobin 8.6 g/dL (11.5-15.4)
[2017-06-02] MEDS ORDERED: *HR* FentaNYL (PF) 100 MCG/2 ML VIAL ONE (11:44)
[2017-06-02] MEDS ORDERED: *HR* Midazolam HCl 2 MG/2 ML VIAL ONE (11:44)
[2017-06-02] MEDS ORDERED: *HR* FentaNYL (PF) 100 MCG/2 ML VIAL IVP PRN (11:45)
[2017-06-02] MEDS ORDERED: *HR* Midazolam HCl 5 MG/5 ML VIAL IVP PRN (11:45)
[2017-06-02] MEDS: Meropenem 1,000 MG in 0.9 % Sodium Chloride Mini Bag 100 ML IVPB SCH (12:10)
--- NOTE | 2017-06-02 12:14 | Gastroenterology Consult Note ---
Date of Encounter: 06/02/17 Time of Encounter: 11:30 - Assessment and plan (1) Coffee ground emesis Current Visit: Yes Status: Acute Assessment and plan: Patient hemoglobin was 9.9 on admission , now down to 8.6. Today she is on PPI infusion. She will have an EGD done to rule out esophagitis/gastric causes for her coffee-ground emesis meanwhile follow H&H. (2) Aspiration pneumonia Current Visit: Yes Status: Acute Qualifiers: Qualified Code(s): J69.0 - Pneumonitis due to inhalation of food and vomit (3) Atrial fibrillation with RVR Current Visit: Yes Status: Acute - Time Spent With Patient Total time spent is greater than 50% in coordination of care (as documented) at patient's floor/unit and/or counseling patient: GI History of Present Illness - Data of Consult Consult date: 06/02/17 Requesting Physician: Tacho Zaman MD - Consult Narrative Reason for consult: Coffee Ground emesis History of present illness: Ms. Le is a 82 year old female with a previous history of stroke status post PEG tube placement and left-sided weakness was transferred from [facility] after she presented there from a [facility] due to coffee-ground emesis. patient was transferred to [place] and since being in the ICU patient do not not have anymore coffee-ground emesis no BM since in the hospital. Her vital signs has been stable currently she is on PPI infusion. Also there has been a concern the patient may had a aspiration pneumonia because she was noticed to be coughing after she had a coffee-ground emesis. patient has a trach in place so no history can be obtained from the patient and no family member are around Past Med Surg Social Fam HX - Past Medical History Medical history: arthritis, atrial fibrillation, COPD, coronary artery disease, CVA, hyperlipidemia, hypertension, migraine, other Psychiatric history: depression - Past Surgical History Surgical History: appendectomy, cataract, cholecystectomy, hysterectomy, pacemaker/AICD, tracheostomy - Social History Smoking Status: Never smoker Smokeless Tobacco Status: No Alcohol use: none Drug use: none Review of Systems: limited because of patient being having a trach and history of stroke with left- sided weakness but she does not seem to be in any acute distress - Constitutional Vitals: Temp Pulse Resp BP Pulse Ox 99.1 F 108 20 119/71 97 06/02/17 07:55 06/02/17 11:54 06/02/17 11:54 06/02/17 11:54 06/02/17 11:54 Exam: Alert and awake not in acute distress - Head Head exam: Present: atraumatic, normocephalic Additional comments: CONSTITUTIONAL:~alert, no acute distress.~HEAD:~normocephalic.~EYES:~no jaundice.~NECK:~Trach is in place.~HEART:~S1 S2 patient is mildly tachycardic.~ LUNGS:~bilateral good air entry.~ABDOMEN:~non distended, soft, non tander, no masses pulpable, no organomegaly., G-tube is in place ~RECTAL EXAM:~Deferred.~ EXTREMITIES:~no clubbing, cyanosis ~SKIN:~no stigmata of chronic liver disease.~ NEUROLOGIC:~has left-sided paralysis due to her stroke ~~~ Results - Labs CBC & Chem 7: 06/02/17 11:04 06/02/17 05:38 Labs: Last Result Calcium 8.7 mg/dL (8.6-10.8) 06/02/17 05:38 C-Reactive Protein 30 mg/L (Less than 5) H 06/01/17 17:53 Entire Visit Hgb 8.6 g/dL (11.5-15.4) L 06/02/17 11:04 Hct 28.5 % (35.3-44.9) L 06/02/17 11:04 Consult Discharge Plan - Plan Referrals: Franci Jones MD [Primary Care Provider] -
--- NOTE | 2017-06-02 15:14 | Internal Med Progress Note ---
Date of Encounter: 06/02/17 Time of Encounter: 10:50 - Assessment and plan (1) Coffee ground emesis Current Visit: Yes Status: Acute Assessment and plan: With anemia. Hemoglobin 8.6 today.Upper GI endoscopy planned for today. (2) Aspiration pneumonia Current Visit: Yes Status: Acute Assessment and plan: Continue O2 supplementation. Wean FiO2 as tolerated. Will change antibiotic to Zosyn. Qualifiers: Aspiration pneumonia type: due to vomit Laterality: unspecified laterality Lung location: unspecified part of lung Qualified Code(s): J69.0 - Pneumonitis due to inhalation of food and vomit (3) Atrial fibrillation with RVR Current Visit: Yes Status: Acute Assessment and plan: Heart rate is better controlled now. Eliquis on hold due to possible GI bleed. (4) CAD (coronary artery disease) Current Visit: Yes Status: Chronic Assessment and plan: Continue Lipitor. Will decrease aspirin dosage to 81 mg by mouth daily Qualifiers: Coronary Disease-Associated Artery/Lesion type: unspecified vessel or lesion type [place] vs. transplanted heart: [place] heart Associated angina: without angina Qualified Code(s): I25.10 - Atherosclerotic heart disease of [place] coronary artery without angina pectoris (5) CHF (congestive heart failure) Current Visit: Yes Status: Chronic Assessment and plan: Continue Lasix. Not in acute exacerbation Qualifiers: Congestive heart failure type: diastolic Congestive heart failure chronicity: acute Qualified Code(s): I50.31 - Acute diastolic (congestive) heart failure (6) Hypertension Current Visit: Yes Status: Chronic Assessment and plan: Well controlled. Qualifiers: Hypertension type: essential hypertension Qualified Code(s): I10 - Essential (primary) hypertension (7) UTI (urinary tract infection) Current Visit: Yes Status: Acute Assessment and plan: On antibiotics. We will follow culture results Qualifiers: Urinary tract infection type: site unspecified Qualified Code(s): N39.0 - Urinary tract infection, site not specified - Subjective Interval history: Patient is lying in bed. No new complaints reported. Pneumonia episodes of nausea or vomiting. No fever or chills reported overnight. Remains on 6 L O2 supplementation with trach collar. - Constitutional Vitals: Temp Pulse Resp BP Pulse Ox 99.1 F 69 20 116/60 100 06/02/17 07:55 06/02/17 14:48 06/02/17 14:48 06/02/17 14:48 06/02/17 14:48 General appearance: Present: cooperative, mild distress, answers questions appropriately - ENT Additional comments: Trach collar in place - Neck Neck exam general surgery: Present: supple, trachea midline. Absent: lymphadenopathy - Respiratory Respiratory exam: Present: prolonged expiratory phase. Absent: accessory muscle use, rales, rhonchi, wheezes Additional comments: Coarse breath sounds bilaterally - Cardiovascular Cardiovascular exam: Present: RRR, +S1, +S2. Absent: diastolic murmur, gallop, rubs, systolic murmur - GI/Abdominal GI/Abdominal exam: Present: normal bowel sounds, soft, no peritoneal signs. Absent: distended, tenderness - Extremities Exam Extremities exam: Present: warm, radial pulses palpable and symmetrical. Absent : calf tenderness, cyanotic, pedal edema - Neurological Exam Neurological exam: Present: alert, no focal deficits. Absent: facial droop, speech deficit Internal Medicine: Result - Labs CBC & Chem 7: 06/02/17 11:04 06/02/17 05:38 Labs: Short CBC 06/01/17 06/01/17 06/02/17 Range/Units 17:53 22:34 08:29 WBC 12.0 H 6.4 (4.3-11.1) K/mcL Hgb 9.9 L 8.9 L 8.3 L (11.5-15.4) g/dL Hct 32.6 L 29.7 L 27.5 L (35.3-44.9) % Plt Count 398 339 (140-400) K/mcL Neutrophils # 9.6 H 4.3 (1.6-8.9) K/mcL 06/02/17 Range/Units 11:04 WBC (4.3-11.1) K/mcL Hgb 8.6 L (11.5-15.4) g/dL Hct 28.5 L (35.3-44.9) % Plt Count (140-400) K/mcL Neutrophils # (1.6-8.9) K/mcL BMP 06/01/17 06/02/17 17:53 05:38 Sodium 142 143 Potassium 3.8 3.8 Chloride 107 115 H Carbon Dioxide 24 21 BUN 39 H 31 H Creatinine 0.87 0.86 Glucose 86 94 Calcium 8.9 8.7 - VTE Documentation of Mechanical Device: Intermittent pneumatic compression device Consult Discharge Plan - Plan Referrals: Franci Jones MD [Primary Care Provider] -
[2017-06-02] MEDS ORDERED: Furosemide 20 MG TABLET PO PRN (19:37)
[2017-06-02] MEDS: ALPRAZolam 1 MG TABLET PO SCH (20:06)
[2017-06-03 03:40] LABS: Basophils % 0.7 %
[2017-06-03 03:42] LABS: Basophils # 0.1 K/mcL (0.0-0.2); Eosinophils # 0.3 K/mcL (0.0-0.6); Eosinophils % 3.3 %; Hematocrit 31.1 % (35.3-44.9); Hemoglobin 9.1 g/dL (11.5-15.4); Immature Granulocytes % 0.2 % (0-4); Lymphocytes # 1.9 K/mcL (0.6-4.6); Lymphocytes % 22.6 %; Mean Corpuscular HGB Conc 29.3 g/dL (31.6-35.5); Mean Corpuscular Hemoglobin 25.1 pg (28.0-33.3); Mean Corpuscular Volume 85.9 fL (83.0-100.0); Mean Platelet Volume 10.3 fL (9.4-12.4); Monocytes # 0.8 K/mcL (0.0-1.3); Monocytes % 10.2 %; Neutrophils # 5.2 K/mcL (1.6-8.9); Platelet Count 371 K/mcL (140-400); Red Blood Count 3.62 M/mcL (3.82-4.97); Red Cell Distribution Width 18.7 % (11.5-14.5)
[2017-06-03 04:00] LABS: Hypochromasia Present (Not Present); Microcytosis Present (Not Present)
[2017-06-03 04:01] LABS: Anisocytosis 1+ (Not Present); Platelet Estimate Normal (Normal)
[2017-06-03] MEDS: Beclomethasone 40mcg MDI IH SCH ×2 (07:47→20:42)
[2017-06-03] MEDS: Pantoprazole 40 MG VIAL IVP SCH (08:39)
[2017-06-03] MEDS ORDERED: Diltiazem CD (24hr) 180 MG CAPSULE PO SCH (09:00)
[2017-06-03] MEDS ORDERED: Pantoprazole 40 MG VIAL IVP SCH (09:00)
[2017-06-03] MEDS: metroNIDAZOLE 500 MG TABLET GTUBE SCH ×3 (13:12→20:10)
[2017-06-03] MEDS: FLUoxetine HCl 10 MG CAPSULE PO SCH (14:29)
[2017-06-03] MEDS: ALPRAZolam 1 MG TABLET PO SCH ×2 (14:39→20:10)
--- NOTE | 2017-06-03 16:14 | Internal Med Progress Note ---
Date of Encounter: 06/03/17 Time of Encounter: 14:00 - Assessment and plan (1) Aspiration pneumonia Current Visit: Yes Status: Acute Assessment and plan: Improving. Chest x-ray done today showed right perihilar infiltrative changes. Continue Cipro and Flagyl. Will change antibiotic to by mouth. Qualifiers: Aspiration pneumonia type: due to vomit Laterality: right Lung location: middle lobe of lung Qualified Code(s): J69.0 - Pneumonitis due to inhalation of food and vomit (2) Reflux esophagitis Current Visit: Yes Status: Acute Assessment and plan: Continue PPI (3) Coffee ground emesis Current Visit: Yes Status: Resolved Assessment and plan: Improved. Upper GI endoscopy done yesterday showed reflux esophagitis. On PPI. (4) Atrial fibrillation with RVR Current Visit: Yes Status: Acute Assessment and plan: Rate controlled currently. Continue digoxin. Patient apparently no longer on Cardizem. We will stop this medication. Continue Lopressor (5) CAD (coronary artery disease) Current Visit: Yes Status: Chronic Assessment and plan: Continue beta suzan and statin. We will resume aspirin. Qualifiers: Coronary Disease-Associated Artery/Lesion type: unspecified vessel or lesion type [place] vs. transplanted heart: [place] heart Associated angina: without angina Qualified Code(s): I25.10 - Atherosclerotic heart disease of [place] coronary artery without angina pectoris (6) CHF (congestive heart failure) Current Visit: Yes Status: Chronic Assessment and plan: Continue Lasix. Not in acute exacerbation Qualifiers: Congestive heart failure type: diastolic Congestive heart failure chronicity: acute Qualified Code(s): I50.31 - Acute diastolic (congestive) heart failure (7) Hypertension Current Visit: Yes Status: Chronic Assessment and plan: Well controlled at this time. We will continue to monitor Qualifiers: Hypertension type: essential hypertension Qualified Code(s): I10 - Essential (primary) hypertension (8) UTI (urinary tract infection) Current Visit: Yes Status: Acute Assessment and plan: Urine culture sent at [facility]. Awaiting culture results which have been requested. Will wait for culture results prior to discharging patient so the patient can be discharged on appropriate antibiotics. She does have a chronic indwelling [place] catheter. For now continue ciprofloxacin. Qualifiers: Urinary tract infection type: site unspecified Qualified Code(s): N39.0 - Urinary tract infection, site not specified (9) DVT prophylaxis Current Visit: No Status: Acute Assessment and plan: With SCDs - Subjective Interval history: Patient is working with her insurance physical therapy. Doing better. Denies any abdominal pain at this time. No new episodes of emesis. Heart rate remains well controlled. - Constitutional Vitals: Temp Pulse Resp BP Pulse Ox 97.8 F 68 10 103/60 100 06/03/17 15:04 06/03/17 15:04 06/03/17 15:04 06/03/17 15:04 06/03/17 15:04 General appearance: Present: cooperative, mild distress, answers questions appropriately - ENT Additional comments: Trach in place - Neck Neck exam general surgery: Present: supple, trachea midline. Absent: lymphadenopathy - Cardiovascular Cardiovascular exam: Present: RRR, +S1, +S2. Absent: diastolic murmur, gallop, rubs, systolic murmur - Extremities Exam Extremities exam: Present: warm, radial pulses palpable and symmetrical. Absent : calf tenderness, cyanotic, pedal edema - Neurological Exam Neurological exam: Present: alert. Absent: facial droop, speech deficit Additional comments: Left-sided weakness in both upper and lower extremities - Skin Skin exam: Present: dry, intact Internal Medicine: Result - Labs CBC & Chem 7: 06/03/17 03:01 06/02/17 05:38 Labs: Short CBC 06/03/17 Range/Units 03:01 WBC 8.2 (4.3-11.1) K/mcL Hgb 9.1 L (11.5-15.4) g/dL Hct 31.1 L (35.3-44.9) % Plt Count 371 (140-400) K/mcL Neutrophils # 5.2 (1.6-8.9) K/mcL - Impressions Impressions Chest X-Ray 06/03/17 07:00 IMPRESSION: New right perihilar infiltrate D/ / Kwaku Domínguez MD / Kwaku Domínguez MD Interpreting Provider: Kwaku Domínguez MD - VTE Documentation of Mechanical Device: Intermittent pneumatic compression device Consult Discharge Plan - Plan Referrals: Franci Jones MD [Primary Care Provider] -
[2017-06-04 05:57] LABS: Basophils % 0.6 %; Eosinophils # 0.3 K/mcL (0.0-0.6); Hematocrit 29.1 % (35.3-44.9); Hemoglobin 8.7 g/dL (11.5-15.4); Immature Granulocytes % 0.1 % (0-4); Lymphocytes # 1.2 K/mcL (0.6-4.6); Lymphocytes % 18.4 %; Mean Corpuscular HGB Conc 29.9 g/dL (31.6-35.5); Mean Corpuscular Hemoglobin 25.2 pg (28.0-33.3); Mean Corpuscular Volume 84.3 fL (83.0-100.0); Mean Platelet Volume 10.1 fL (9.4-12.4); Monocytes # 0.6 K/mcL (0.0-1.3); Monocytes % 8.2 %; Neutrophils # 4.6 K/mcL (1.6-8.9); Platelet Count 335 K/mcL (140-400); Red Blood Count 3.45 M/mcL (3.82-4.97); Red Cell Distribution Width 18.6 % (11.5-14.5); Segmented Neutrophils % 68.7 %
[2017-06-04 06:11] LABS: BUN/Creatinine Ratio 26 (6-26); Calcium 8.9 mg/dL (8.6-10.8); Carbon Dioxide 24 mEq/L (19-29); Chloride 115 mEq/L (98-109); Glucose 160 mg/dL (70-99); Osmolality,Calculated 305 (280-300); Potassium 3.2 mEq/L (3.5-4.5); Sodium 145 mEq/L (136-145); eGFR For African Americans > 60 (> 60); eGFR For Non-African Americans > 60 (> 60)
[2017-06-04 06:12] LABS: Blood Urea Nitrogen 18 mg/dL (7-20)
--- NOTE | 2017-06-04 07:53 | Internal Med Progress Note ---
Date of Encounter: 06/04/17 - Constitutional Vitals: Temp Pulse Resp BP Pulse Ox 97.9 F 98 12 136/81 97 06/04/17 06:31 06/04/17 06:31 06/04/17 06:31 06/04/17 06:31 06/04/17 06:31 General appearance: Present: cooperative, mild distress, answers questions appropriately Internal Medicine: Result - Labs CBC & Chem 7: 06/04/17 05:12 06/04/17 05:12 Labs: Short CBC 06/04/17 Range/Units 05:12 WBC 6.7 (4.3-11.1) K/mcL Hgb 8.7 L (11.5-15.4) g/dL Hct 29.1 L (35.3-44.9) % Plt Count 335 (140-400) K/mcL Neutrophils # 4.6 (1.6-8.9) K/mcL BMP 06/04/17 05:12 Sodium 145 Potassium 3.2 L Chloride 115 H Carbon Dioxide 24 BUN 18 D Creatinine 0.69 Glucose 160 H Calcium 8.9 - VTE Documentation of Mechanical Device: Intermittent pneumatic compression device Consult Discharge Plan - Plan Referrals: Franci Jones MD [Primary Care Provider] -
[2017-06-04] MEDS ORDERED: Potassium Chloride Elixir 20 MEQ/15 ML UDC GTUBE ONE (08:16)
[2017-06-04] MEDS ORDERED: Furosemide 20 MG TABLET PO SCH (09:00)
--- NOTE | 2017-06-04 09:54 | Internal Med Progress Note ---
<Charli Hawley - Last Filed: 06/04/17 14:22> Date of Encounter: 06/04/17 - Constitutional Vitals: Temp Pulse Resp BP Pulse Ox 97.7 F 94 18 116/66 97 06/04/17 10:33 06/04/17 10:33 06/04/17 11:10 06/04/17 10:33 06/04/17 11:10 Internal Medicine: Result - Labs CBC & Chem 7: 06/04/17 05:12 06/04/17 05:12 Labs: Short CBC 06/04/17 Range/Units 05:12 WBC 6.7 (4.3-11.1) K/mcL Hgb 8.7 L (11.5-15.4) g/dL Hct 29.1 L (35.3-44.9) % Plt Count 335 (140-400) K/mcL Neutrophils # 4.6 (1.6-8.9) K/mcL BMP 06/04/17 05:12 Sodium 145 Potassium 3.2 L Chloride 115 H Carbon Dioxide 24 BUN 18 D Creatinine 0.69 Glucose 160 H Calcium 8.9 Consult Discharge Plan - Plan Referrals: Franci Jones MD [Primary Care Provider] - - Attending Attestation I examined this patient and my medical decision-making was reviewed with the Resident Physician. I agree with the documented findings, disposition and treatment plan as described except to the extent set forth below. <LisbethKyejerry Mendosajohnyartis - Last Filed: 06/04/17 16:19> Date of Encounter: 06/04/17 Time of Encounter: 16:06 - Assessment and plan (1) Coffee ground emesis Current Visit: Yes Status: Resolved Assessment and plan: resolved UGI showed evidence of esophagitis on lanzoprazole BID continue tube feeds hgb stable (2) Aspiration pneumonia Current Visit: Yes Status: Acute Assessment and plan: Improving. Continue Cipro and Flagyl. Will change antibiotic to Gtube continue O2 supplementation Qualifiers: Aspiration pneumonia type: due to vomit Laterality: right Lung location: middle lobe of lung Qualified Code(s): J69.0 - Pneumonitis due to inhalation of food and vomit (3) Reflux esophagitis Current Visit: Yes Status: Acute Assessment and plan: EGD did not show signs of active bleeding. Patient has esophagitis. on PPI (4) CHF (congestive heart failure) Current Visit: Yes Status: Chronic Assessment and plan: not in exacerbation continue home lasix Qualifiers: Congestive heart failure type: diastolic Congestive heart failure chronicity: acute Qualified Code(s): I50.31 - Acute diastolic (congestive) heart failure (5) CAD (coronary artery disease) Current Visit: Yes Status: Chronic Assessment and plan: hx f CAD continue home statin bblocker resume aspirin. Qualifiers: Coronary Disease-Associated Artery/Lesion type: unspecified vessel or lesion type [place] vs. transplanted heart: [place] heart Associated angina: without angina Qualified Code(s): I25.10 - Atherosclerotic heart disease of [place] coronary artery without angina pectoris (6) DVT prophylaxis Current Visit: Yes Status: Acute Assessment and plan: With SCDs (7) Atrial fibrillation with RVR Current Visit: Yes Status: Acute Assessment and plan: Rate controlled currently. conitnue metoprolol was not on anticoagulaion due to UGI bleed restart eliquis (8) UTI (urinary tract infection) Current Visit: Yes Status: Acute Assessment and plan: Urine culture not back from [facility] now continue ciprofloxacin. Qualifiers: Urinary tract infection type: site unspecified Qualified Code(s): N39.0 - Urinary tract infection, site not specified - Subjective Interval history: No acute events overnight. Patient does not appear in distress. - Constitutional Vitals: Temp Pulse Resp BP Pulse Ox 97.9 F 98 12 136/81 97 06/04/17 06:31 06/04/17 06:31 06/04/17 06:31 06/04/17 06:31 06/04/17 06:31 General appearance: Present: cooperative, mild distress, answers questions appropriately - Respiratory Additional comments: tracheostomy lung sound clear - Cardiovascular Cardiovascular exam: Present: RRR, +S1, +S2. Absent: diastolic murmur, gallop, rubs, systolic murmur - GI/Abdominal Additional comments: PEG tube placed. +BS no abdominal tenderness - Extremities Exam Extremities exam: Present: warm, radial pulses palpable and symmetrical. Absent : cyanotic, pedal edema - Neurological Exam Additional comments: s/p trach, does not speak follows commands awake and alert Internal Medicine: Result - Labs CBC & Chem 7: 06/04/17 05:12 06/04/17 05:12 Labs: Short CBC 06/04/17 Range/Units 05:12 WBC 6.7 (4.3-11.1) K/mcL Hgb 8.7 L (11.5-15.4) g/dL Hct 29.1 L (35.3-44.9) % Plt Count 335 (140-400) K/mcL Neutrophils # 4.6 (1.6-8.9) K/mcL BMP 06/04/17 05:12 Sodium 145 Potassium 3.2 L Chloride 115 H Carbon Dioxide 24 BUN 18 D Creatinine 0.69 Glucose 160 H Calcium 8.9 - VTE Documentation of Mechanical Device: Intermittent pneumatic compression device
[2017-06-04] MEDS: metroNIDAZOLE 500 MG TABLET GTUBE SCH ×3 (11:03→22:41)
[2017-06-04] MEDS: FLUoxetine HCl 10 MG CAPSULE PO SCH (11:04)
[2017-06-04] MEDS: ALPRAZolam 1 MG TABLET PO SCH (11:04)
[2017-06-04] MEDS: Potassium Chloride Elixir 20 MEQ/15 ML UDC GTUBE SCH (11:04)
[2017-06-04] MEDS: Pantoprazole 40 MG VIAL IVP SCH (11:05)
[2017-06-04] MEDS: Beclomethasone 40mcg MDI IH SCH ×2 (11:10→20:17)
[2017-06-04] MEDS: ALPRAZolam 1 MG TABLET GTUBE SCH (22:41)
[2017-06-05 05:53] LABS: Basophils # 0.1 K/mcL (0.0-0.2); Basophils % 0.8 %; Eosinophils # 0.3 K/mcL (0.0-0.6); Eosinophils % 5.2 %; Hematocrit 31.7 % (35.3-44.9); Hemoglobin 9.5 g/dL (11.5-15.4); Immature Granulocytes % 0.2 % (0-4); Lymphocytes # 1.4 K/mcL (0.6-4.6); Lymphocytes % 20.9 %; Mean Corpuscular Hemoglobin 25.3 pg (28.0-33.3); Mean Corpuscular Volume 84.5 fL (83.0-100.0); Mean Platelet Volume 9.7 fL (9.4-12.4); Monocytes # 0.6 K/mcL (0.0-1.3); Monocytes % 9.7 %; Neutrophils # 4.2 K/mcL (1.6-8.9); Platelet Count 334 K/mcL (140-400); Red Blood Count 3.75 M/mcL (3.82-4.97); Red Cell Distribution Width 18.8 % (11.5-14.5); Segmented Neutrophils % 63.2 %
[2017-06-05 06:06] LABS: BUN/Creatinine Ratio 25 (6-26); Blood Urea Nitrogen 18 mg/dL (7-20); Calcium 8.9 mg/dL (8.6-10.8); Carbon Dioxide 26 mEq/L (19-29); Chloride 113 mEq/L (98-109); Glucose 146 mg/dL (70-99); Magnesium 1.3 mg/dL (1.6-2.6); Osmolality,Calculated 305 (280-300); Potassium 3.7 mEq/L (3.5-4.5); Sodium 145 mEq/L (136-145); eGFR For African Americans > 60 (> 60); eGFR For Non-African Americans > 60 (> 60)
[2017-06-05] MEDS ORDERED: Magnesium Sulfate 2 GM in D5% in Water 100 ML IVPB ONE (06:31)
--- NOTE | 2017-06-05 06:31 | Internal Med Progress Note ---
Date of Encounter: 06/05/17 - Assessment and plan (1) Coffee ground emesis Current Visit: Yes Status: Resolved (2) Aspiration pneumonia Current Visit: Yes Status: Acute Qualifiers: Aspiration pneumonia type: due to vomit Laterality: right Lung location: middle lobe of lung Qualified Code(s): J69.0 - Pneumonitis due to inhalation of food and vomit (3) Reflux esophagitis Current Visit: Yes Status: Acute (4) CHF (congestive heart failure) Current Visit: Yes Status: Chronic Qualifiers: Congestive heart failure type: diastolic Congestive heart failure chronicity: acute Qualified Code(s): I50.31 - Acute diastolic (congestive) heart failure (5) CAD (coronary artery disease) Current Visit: Yes Status: Chronic Qualifiers: Coronary Disease-Associated Artery/Lesion type: unspecified vessel or lesion type [place] vs. transplanted heart: [place] heart Associated angina: without angina Qualified Code(s): I25.10 - Atherosclerotic heart disease of [place] coronary artery without angina pectoris (6) DVT prophylaxis Current Visit: Yes Status: Acute (7) Atrial fibrillation with RVR Current Visit: Yes Status: Acute (8) UTI (urinary tract infection) Current Visit: Yes Status: Acute Qualifiers: Urinary tract infection type: site unspecified Qualified Code(s): N39.0 - Urinary tract infection, site not specified - Subjective Interval history: No acute events overnight. Patient does not appear in distress. - Constitutional Vitals: Temp Pulse Resp BP Pulse Ox 98.7 F 113 20 124/98 100 06/05/17 05:00 06/05/17 05:00 06/05/17 05:00 06/05/17 05:00 06/05/17 05:00 General appearance: Present: cooperative, mild distress, answers questions appropriately Internal Medicine: Result - Labs CBC & Chem 7: 06/05/17 05:38 06/05/17 05:38 Labs: Short CBC 06/05/17 Range/Units 05:38 WBC 6.6 (4.3-11.1) K/mcL Hgb 9.5 L (11.5-15.4) g/dL Hct 31.7 L (35.3-44.9) % Plt Count 334 (140-400) K/mcL Neutrophils # 4.2 (1.6-8.9) K/mcL BMP 06/05/17 05:38 Sodium 145 Potassium 3.7 Chloride 113 H Carbon Dioxide 26 BUN 18 Creatinine 0.71 Glucose 146 H Calcium 8.9 - VTE Documentation of Mechanical Device: Intermittent pneumatic compression device Consult Discharge Plan - Plan Referrals: Franci Jones MD [Primary Care Provider] -
[2017-06-05] MEDS: Beclomethasone 40mcg MDI IH SCH (07:53)
[2017-06-05] MEDS: ALPRAZolam 1 MG TABLET GTUBE SCH (08:15)
[2017-06-05] MEDS: metroNIDAZOLE 500 MG TABLET GTUBE SCH (08:15)
[2017-06-05] MEDS: Potassium Chloride Elixir 20 MEQ/15 ML UDC GTUBE SCH (08:15)
[2017-06-05] MEDS ORDERED: Furosemide Oral Soln 40 MG/4 ML UDC GTUBE SCH (09:00)
--- NOTE | 2017-06-05 10:37 | Discharge Summary ---
<Kye Bob - Last Filed: 06/05/17 16:07> Date of Encounter: 06/05/17 Time of Encounter: 10:34 - Discharge Diagnosis (1) Coffee ground emesis Priority: Primary Status: Resolved (2) Aspiration pneumonia Priority: Secondary Status: Acute Qualifiers: Aspiration pneumonia type: due to vomit Laterality: right Lung location: middle lobe of lung Qualified Code(s): J69.0 - Pneumonitis due to inhalation of food and vomit (3) Reflux esophagitis Priority: Secondary Status: Acute (4) CHF (congestive heart failure) Priority: Secondary Status: Chronic Qualifiers: Congestive heart failure type: diastolic Congestive heart failure chronicity: acute Qualified Code(s): I50.31 - Acute diastolic (congestive) heart failure (5) CAD (coronary artery disease) Priority: Secondary Status: Chronic Qualifiers: Coronary Disease-Associated Artery/Lesion type: unspecified vessel or lesion type [place] vs. transplanted heart: [place] heart Associated angina: without angina Qualified Code(s): I25.10 - Atherosclerotic heart disease of [place] coronary artery without angina pectoris (6) DVT prophylaxis Priority: Secondary Status: Acute (7) Atrial fibrillation with RVR Priority: Secondary Status: Acute (8) UTI (urinary tract infection) Priority: Secondary Status: Acute Qualifiers: Urinary tract infection type: site unspecified Hematuria presence: without hematuria Qualified Code(s): N39.0 - Urinary tract infection, site not specified - Discharge Medications Prescriptions: Ciprofloxacin [Cipro] 500 mg GTUBE BID #6 tablet metroNIDAZOLE [Flagyl] 500 mg GTUBE TID #9 tablet Home Medications: Acetaminophen [Non-Aspirin] 650 mg GTUBE Q6H PRN 06/02/17 [History] Apixaban [Eliquis] 2.5 mg GTUBE BID 06/02/17 [History] Ferrous Sulfate [Ferosul] 300 mg GTUBE DAILY 06/02/17 [History] Furosemide [Lasix] 20 mg GTUBE BID 06/02/17 [History] Lisinopril [Zestril] 20 mg GTUBE DAILY 06/02/17 [History] Loperamide [Imodium] 2 mg GTUBE AD PRN 06/02/17 [History] amLODIPine [Norvasc] 5 mg GTUBE DAILY 06/02/17 [History] ALPRAZolam [Xanax 0.25 MG Tablet] 0.25 mg GTUBE TID PRN 06/03/17 [History] Aspirin 81 mg GTUBE HS 06/03/17 [History] Atorvastatin [Lipitor] 40 mg GTUBE HS 06/03/17 [History] Chlorhexidine Gluconate [Peridex] 15 ml MM BID 06/03/17 [History] Cranberry Fruit Extract [Cranberry] 405 mg GTUBE DAILY 06/03/17 [History] Digoxin [Lanoxin] 0.125 mg GTUBE DAILY 06/03/17 [History] Docusate Sodium [Diocto] 100 mg GTUBE BID PRN 06/03/17 [History] Metoprolol [Lopressor] 50 mg GTUBE Q8H 06/03/17 [History] guaiFENesin [Guaifenesin] 200 mg GTUBE Q6H 06/03/17 [History] Ciprofloxacin [Cipro] 500 mg GTUBE BID #6 tablet 06/05/17 [Rx] Lansoprazole [Prevacid] 15 mg GTUBE BIDAC #60 capsule. 06/05/17 [Rx] metroNIDAZOLE [Flagyl] 500 mg GTUBE TID #9 tablet 06/05/17 [Rx] Allergies/Adverse Reactions: 3 Allergy/AdvReac Type Severity Reaction Status Date / Time Penicillins Allergy Anaphylaxis Verified 02/28/17 13:00 Date of admission: 06/01/17 15:15 Primary care physician: Franci Delgado Consults: 06/01/17 16:15 Consult to Pastoral Services [CONS] Routine Comment: per pt and family request Consult to [employer] [CONS] Routine Reason for SW Consult: ECF managment. pt's family states that they cannot afford bed hold and will need bed placement upon discharge. 06/01/17 16:59 Consult to Gastroenterology [CONS] Routine Consulting Provider: Gastroenterology Scott Reason for Consult: ? GI bleed Call Completed: Yes Consult to Occupational Therapy [CONS] Routine Comment: Evaluate, develop and implement POC Reason for Consult: weakness Consult to Physical Therapy [CONS] Routine Comment: Evaluate, develop and implement POC Reason for Consult: weakness 06/02/17 14:46 dietary consult [Consult to Nutrition] [CONS] Routine Comment: Consulting Provider: NUTRITION Reason for Dietary Consult: TF Start and Manage Other:: at [facility] on jevity 1.5 @ 50 ml/hr 10/08/17 15:14 Consult to Speech Therapy [CONS] Routine Comment: Evaluate, develop and implement POC Reason for Consult: Aspiration Call Completed: No Discharging clinician: Kye Bob Anticipated date of discharge: 06/05/17 - Patient Status Disposition: Transfer SNF Condition: Good Functional capacity at discharge: wheelchair bound Overall status at discharge: patient is progressing back to baseline - Discharge Instructions Follow Up With: Franci Jones MD [Primary Care Provider] - - Diet and Activity Activity: as per physical therapy Diet: other (tube feed jevity 1.5 45mL/hr) Hospital course: Ms. Le is a 82 year old female presented [facility] transfer for episode of coffee ground emesis. Hemoglobin 9.9 on admission was 70.6. Patient has history of stroke status post PEG tube placement. Patient was started on a PPI infusion and cpc coder consultation for EGD. Furthermore patient has history of atrial fibrillation and she is on Eliquis which was held initially. EGD showed evidence of gastritis was negative for any acute bleeding or stigmata of bleeding. Tube feeds were restarted. There was also concern for aspiration pneumonia as chest showed new right perihilar infiltarte. Patient was started on meropenem initially and then transitioned to ciprofloxacin and Flagyl. Her respratory status remained stable and she did not require more than her home dose of 2L O2. At [facility] patient's urinalysis done was concerning for urinary tract infection and effort was made to obtain urine cultures however they have not resulted yet. After EGD patient's hemoglobin remained stable and she did not require any transfusion. Eliquis was restarted as patient was stable and there is no bleeding found on EGD. Patient was on metoprolol for control of her atrial fibrillation. Today patient's hemoglobin is stable, she is started on lansoprazole twice a day. She is tolerating her tube feed. Patient will be discharged on 3 additional days of ciprofloxacin and Flagyl for a total of 7 days of antibiotics for aspiration pneumonia and UTI. She will obtain a CBC 3 days after discharge to follow her hemoglobin. She will follow-up with her primary care physician. - Time Spent with Patient Total time spent providing and/or coordinating discharge services: - Constitutional Vitals: Temp Pulse Resp BP Pulse Ox 98.7 F 114 21 135/71 100 06/05/17 05:00 06/05/17 07:00 06/05/17 07:00 06/05/17 07:00 06/05/17 07:00 General appearance: Present: cooperative, mild distress Exam: Patient to interact by nodding and showing thumbs up and down - Head Head exam: Present: atraumatic, normocephalic - Eye Eye exam: Present: PERRL, conjuntiva pink, sclera anicteric - Neck Neck exam general surgery: Present: supple, trachea midline (trach collar ). Absent: lymphadenopathy - Respiratory Respiratory exam: Present: CTAB. Absent: accessory muscle use, rales, rhonchi, wheezes - Cardiovascular Cardiovascular exam: Present: irregular rhythm, +S1, +S2. Absent: diastolic murmur, gallop, rubs, systolic murmur - GI/Abdominal GI/Abdominal exam: Present: normal bowel sounds, soft, no peritoneal signs. Absent: distended, tenderness Additional comments: PEG tube - Extremities Exam Extremities exam: Present: warm, radial pulses palpable and symmetrical. Absent : calf tenderness, cyanotic, pedal edema - Neurological Exam Additional comments: s/p trach, does not speak follows commands awake and alert - Skin Skin exam: Present: dry, intact - VTE Documentation of Mechanical Device: Intermittent pneumatic compression device <Charli Hawley P - Last Filed: 06/05/17 19:02> Date of Encounter: 06/05/17 Date of admission: 06/01/17 15:15 Primary care physician: Franci Delgado Consults: 06/01/17 16:15 Consult to Pastoral Services [CONS] Routine Comment: per pt and family request Consult to [employer] [CONS] Routine Reason for SW Consult: ECF managment. pt's family states that they cannot afford bed hold and will need bed placement upon discharge. 06/01/17 16:59 Consult to Gastroenterology [CONS] Routine Consulting Provider: Gastroenterology Margaret Reason for Consult: ? GI bleed Call Completed: Yes Consult to Occupational Therapy [CONS] Routine Comment: Evaluate, develop and implement POC Reason for Consult: weakness Consult to Physical Therapy [CONS] Routine Comment: Evaluate, develop and implement POC Reason for Consult: weakness 06/02/17 14:46 dietary consult [Consult to Nutrition] [CONS] Routine Comment: Consulting Provider: NUTRITION Reason for Dietary Consult: TF Start and Manage Other:: at [facility] on jevity 1.5 @ 50 ml/hr 06/02/17 15:14 Consult to Speech Therapy [CONS] Routine Comment: Evaluate, develop and implement POC Reason for Consult: Aspiration Call Completed: No Hospital course: Ms. Le is a 82 year old female - Time Spent with Patient Total time spent providing and/or coordinating discharge services: - Constitutional Vitals: Temp Pulse Resp BP Pulse Ox 97.9 F 116 20 141/76 100 06/05/17 11:00 06/05/17 11:00 06/05/17 11:00 06/05/17 11:00 06/05/17 11:00 - Attending Attestation I examined this patient and my medical decision-making was reviewed with the Resident Physician. I agree with the documented findings, disposition and treatment plan as described except to the extent set forth below.
--- NOTE | 2017-06-05 10:41 | Physician Discharge Referral ---
<Kye Bob - Last Filed: 06/05/17 10:39> ExtendedCare Referral Info Transfer To: [facility] Provider in Charge: Dr. Hawley Provider in Charge after Transfer: PCP Institutional Level of Care: Skilled - Diagnosis (1) Coffee ground emesis Priority: Primary Status: Resolved (2) Aspiration pneumonia Priority: Secondary Status: Acute (3) Reflux esophagitis Priority: Secondary Status: Acute (4) CHF (congestive heart failure) Priority: Secondary Status: Chronic (5) CAD (coronary artery disease) Priority: Secondary Status: Chronic (6) DVT prophylaxis Priority: Secondary Status: Acute (7) Atrial fibrillation with RVR Priority: Secondary Status: Acute (8) UTI (urinary tract infection) Priority: Secondary Status: Acute Prognosis: Good - Transfer Medications Prescriptions: Ciprofloxacin [Cipro] 500 mg GTUBE BID #6 tablet metroNIDAZOLE [Flagyl] 500 mg GTUBE TID #9 tablet Home Medications: Acetaminophen [Non-Aspirin] 650 mg GTUBE Q6H PRN 06/02/17 [History] Apixaban [Eliquis] 2.5 mg GTUBE BID 06/02/17 [History] Ferrous Sulfate [Ferosul] 300 mg GTUBE DAILY 06/02/17 [History] Furosemide [Lasix] 20 mg GTUBE BID 06/02/17 [History] Lisinopril [Zestril] 20 mg GTUBE DAILY 06/02/17 [History] Loperamide [Imodium] 2 mg GTUBE AD PRN 06/02/17 [History] amLODIPine [Norvasc] 5 mg GTUBE DAILY 06/02/17 [History] ALPRAZolam [Xanax 0.25 MG Tablet] 0.25 mg GTUBE TID PRN 06/03/17 [History] Aspirin 81 mg GTUBE HS 06/03/17 [History] Atorvastatin [Lipitor] 40 mg GTUBE HS 06/03/17 [History] Chlorhexidine Gluconate [Peridex] 15 ml MM BID 06/03/17 [History] Cranberry Fruit Extract [Cranberry] 405 mg GTUBE DAILY 06/03/17 [History] Digoxin [Lanoxin] 0.125 mg GTUBE DAILY 06/03/17 [History] Docusate Sodium [Diocto] 100 mg GTUBE BID PRN 06/03/17 [History] Metoprolol [Lopressor] 50 mg GTUBE Q8H 06/03/17 [History] guaiFENesin [Guaifenesin] 200 mg GTUBE Q6H 06/03/17 [History] Ciprofloxacin [Cipro] 500 mg GTUBE BID #6 tablet 06/05/17 [Rx] Lansoprazole [Prevacid] 15 mg GTUBE BIDAC #60 capsule. 06/05/17 [Rx] metroNIDAZOLE [Flagyl] 500 mg GTUBE TID #9 tablet 06/05/17 [Rx] Allergies/Adverse Reactions: 3 Allergy/AdvReac Type Severity Reaction Status Date / Time Penicillins Allergy Anaphylaxis Verified 02/28/17 13:00 - Respiratory Orders Oxygen / L per min (2L), Other (trach collor needs daily trach care) Smoking Cessation: Smoking cessation has been advised. For more information, call the [employer] Line at 7-296-GDLUNOW. - Lab Orders Lab Orders: CBC (Needs CBC in 3 days post discharge) - Ancillary Orders May use pressure relief devices daily prn - Advance Directives Code Status: Full Code - Mobility Orders Chair - Rehabiliation Orders Rehab Potential: Good Rehab Orders: ROM Exercises, Evaluation for Physical Therapy, Evaluation for Occupational Therapy - Treatments Skin tear care topically daily PRN per policy - Diet Orders Tube Feedings (type/amount/rate): jevity 1.5 45mL/hr CERTIFICATION: I certify that the transfer of the above named patient to an Extended Care Facility is necessary for the continuing treatment of the diagnosis listed. The above information is true and accurate reflection of patient's current condition. Confidential - Redisclosure prohibited without a patient's written consent. <Charli Hawley - Last Filed: 06/05/17 19:02> - Respiratory Orders Smoking Cessation: Smoking cessation has been advised. For more information, call the [employer] Line at 3-546-MAPDNOW. CERTIFICATION: I certify that the transfer of the above named patient to an Extended Care Facility is necessary for the continuing treatment of the diagnosis listed. The above information is true and accurate reflection of patient's current condition. Confidential - Redisclosure prohibited without a patient's written consent.
[2017-06-05 11:45] VITALS: BP 141/76
== END 2017-06-05 13:20 | DRG 177 ==
LOC: ICNU 15:15 → SUATTDRO 15:15 → 2NENU 06-02 17:46
PROVIDERS: ADMIT Hospitalist; ATTEND Internal Medicine
PROC: ENDOEBX (2017-06-02 11:30)

== ENCOUNTER 2021-12-02 16:30 | Inpatient (IN) ==
[2021-12-02] MEDS ORDERED: Naloxone 0.4 MG/ML INJ IVP PRN (20:38)
[2021-12-02] MEDS ORDERED: Melatonin 3 MG TABLET PO PRN (20:38)
[2021-12-02] MEDS ORDERED: *HR* Dextrose 50 % in Water (Syg) 50 ML SYRINGE IVP PRN (21:09)
[2021-12-02] MEDS ORDERED: Dextrose 4 GM Chewable Tablets PO PRN ×2 (21:09)
[2021-12-02] MEDS ORDERED: D5% in Water 1,000 ML IVC PRN (21:09)
[2021-12-02 21:11] LABS: Basophils # 0.1 K/mcL (0.0-0.2); Basophils % 0.7 %; Eosinophils # 0.1 K/mcL (0.0-0.6); Eosinophils % 1.7 %; Hematocrit 35.9 % (35.3-44.9); Hemoglobin 11.8 g/dL (11.5-15.4); Immature Granulocytes % 0.2 % (0-4); Lymphocytes # 1.5 K/mcL (0.6-4.6); Lymphocytes % 18.7 %; Mean Corpuscular HGB Conc 32.9 g/dL (31.6-35.5); Mean Corpuscular Volume 97.3 fL (83.0-100.0); Mean Platelet Volume 10.4 fL (9.4-12.4); Monocytes # 0.7 K/mcL (0.0-1.3); Monocytes % 8.5 %; Neutrophils # 5.7 K/mcL (1.6-8.9); Platelet Count 225 K/mcL (140-400); Red Blood Count 3.69 M/mcL (3.82-4.97); Red Cell Distribution Width 12.7 % (11.5-14.5); Segmented Neutrophils % 70.2 %; White Blood Count 8.2 K/mcL (4.3-11.1)
[2021-12-02 21:18] LABS: INR 1.1; Prothrombin Time 12.7 Seconds (9.4-12.1)
[2021-12-02 21:29] LABS: Alanine Aminotransferase 13 Units/L (7-52); Albumin 3.3 g/dL (3.5-5.7); Albumin/Globulin Ratio 1.1 (1.1-2.2); Alkaline Phosphatase 81 Units/L (34-104); Aspartate Amino Transferase 12 Units/L (13-39); BUN/Creatinine Ratio 22 (6-26); Bilirubin,Total 0.9 mg/dL (0.3-1.0); Blood Urea Nitrogen 22 mg/dL (8-23); Carbon Dioxide 26 mEq/L (23-29); Chloride 111 mEq/L (98-107); Globulin 2.9 g/dL (2.4-3.5); Glucose 92 mg/dL (70-105); Magnesium 1.9 mg/dL (1.6-2.6); Osmolality,Calculated 299 (280-300); Potassium 4.3 mEq/L (3.5-5.1); Sodium 143 mEq/L (136-145); Total Protein 6.2 g/dL (6.4-8.9); eGFR For African Americans > 60 (> 60); eGFR For Non-African Americans 52 (> 60)
[2021-12-02] MEDS ORDERED: D5% in 0.45% NACL 1,000 ML IVC SCH (21:45)
[2021-12-03] MEDS: Insulin LISPRO 300 UNITS/3 ML VIAL SUBQ SCH ×5 (02:05→23:30)
[2021-12-03] MEDS: Pantoprazole 40 MG VIAL IVP SCH ×2 (05:56→17:31)
[2021-12-03] MEDS: cefTRIAXone 1,000 MG in 0.9 % Sodium Chloride 10 ML IVPB SCH (08:44)
[2021-12-03] MEDS ORDERED: GuaiFENesin Liq 200 MG/10 ML UDC GTUBE PRN (08:45)
[2021-12-03] MEDS ORDERED: Artificial Tears SOLN 15 ML BOTTLE BOTH EYES PRN (08:45)
[2021-12-03] MEDS ORDERED: Bisacodyl 10 MG RECTAL SUPPOSITORY RC PRN (08:45)
[2021-12-03] MEDS ORDERED: Ipratropium/Albuterol Neb 3 ML IH PRN (08:45)
[2021-12-03] MEDS: Cholecalciferol (D-3) 1,000 UNIT (25MCG) TABLET PO SCH (10:47)
[2021-12-03] MEDS: Budesonide Neb 0.5 MG/2 ML IH SCH ×2 (10:52→20:38)
[2021-12-03 11:05] LABS: Basophils # 0.1 K/mcL (0.0-0.2); Basophils % 1.1 %; Eosinophils # 0.1 K/mcL (0.0-0.6); Eosinophils % 2.6 %; Hematocrit 34.2 % (35.3-44.9); Hemoglobin 11.2 g/dL (11.5-15.4); Immature Granulocytes % 0.2 % (0-4); Lymphocytes # 1.2 K/mcL (0.6-4.6); Lymphocytes % 22.4 %; Mean Corpuscular HGB Conc 32.7 g/dL (31.6-35.5); Mean Corpuscular Hemoglobin 31.5 pg (28.0-33.3); Mean Corpuscular Volume 96.1 fL (83.0-100.0); Mean Platelet Volume 10.4 fL (9.4-12.4); Monocytes # 0.5 K/mcL (0.0-1.3); Monocytes % 8.4 %; Neutrophils # 3.6 K/mcL (1.6-8.9); Platelet Count 234 K/mcL (140-400); Red Blood Count 3.56 M/mcL (3.82-4.97); Red Cell Distribution Width 12.7 % (11.5-14.5); Segmented Neutrophils % 65.3 %; White Blood Count 5.5 K/mcL (4.3-11.1)
[2021-12-03 11:24] LABS: BUN/Creatinine Ratio 20 (6-26); Blood Urea Nitrogen 19 mg/dL (8-23); Calcium 8.6 mg/dL (8.6-10.3); Carbon Dioxide 24 mEq/L (23-29); Chloride 112 mEq/L (98-107); Glucose 100 mg/dL (70-105); Osmolality,Calculated 296 (280-300); Potassium 4.1 mEq/L (3.5-5.1); Sodium 142 mEq/L (136-145); eGFR For African Americans > 60 (> 60); eGFR For Non-African Americans 56 (> 60)
[2021-12-03 11:26] LABS: Iron 67 mcg/dL (50-170)
[2021-12-03 11:44] LABS: Ferritin 82 ng/mL (10-120)
[2021-12-03 12:19] LABS: Transferrin < 75 mg/dL (203-362)
[2021-12-03] MEDS: ALPRAZolam 0.25 MG TABLET GTUBE SCH (14:11)
[2021-12-03] MEDS ORDERED: Aspirin 81 MG TAB.CHEW GTUBE SCH (21:00)
[2021-12-04] MEDS: Insulin LISPRO 300 UNITS/3 ML VIAL SUBQ SCH ×2 (07:26→12:26)
[2021-12-04 07:54] LABS: Basophils # 0.1 K/mcL (0.0-0.2); Basophils % 1.1 %; Eosinophils # 0.2 K/mcL (0.0-0.6); Eosinophils % 3.1 %; Hematocrit 35.7 % (35.3-44.9); Hemoglobin 11.8 g/dL (11.5-15.4); Immature Granulocytes % 0.2 % (0-4); Lymphocytes # 1.2 K/mcL (0.6-4.6); Lymphocytes % 18.9 %; Mean Corpuscular HGB Conc 33.1 g/dL (31.6-35.5); Mean Corpuscular Hemoglobin 32.2 pg (28.0-33.3); Mean Corpuscular Volume 97.3 fL (83.0-100.0); Mean Platelet Volume 10.7 fL (9.4-12.4); Monocytes # 0.5 K/mcL (0.0-1.3); Monocytes % 7.9 %; Neutrophils # 4.4 K/mcL (1.6-8.9); Platelet Count 255 K/mcL (140-400); Red Blood Count 3.67 M/mcL (3.82-4.97); Red Cell Distribution Width 12.4 % (11.5-14.5); Segmented Neutrophils % 68.8 %; White Blood Count 6.4 K/mcL (4.3-11.1)
[2021-12-04 07:56] LABS: BUN/Creatinine Ratio 19 (6-26); Blood Urea Nitrogen 18 mg/dL (8-23); Carbon Dioxide 26 mEq/L (23-29); Chloride 109 mEq/L (98-107); Glucose 80 mg/dL (70-105); Osmolality,Calculated 297 (280-300); Potassium 3.9 mEq/L (3.5-5.1); Sodium 143 mEq/L (136-145); eGFR For African Americans > 60 (> 60); eGFR For Non-African Americans 57 (> 60)
[2021-12-04] MEDS: Budesonide Neb 0.5 MG/2 ML IH SCH (08:01)
[2021-12-04] MEDS: cefTRIAXone 1,000 MG in 0.9 % Sodium Chloride 10 ML IVPB SCH (08:34)
[2021-12-04] MEDS: Cholecalciferol (D-3) 1,000 UNIT (25MCG) TABLET PO SCH (08:34)
[2021-12-04] MEDS: Pantoprazole 40 MG VIAL IVP SCH (08:35)
[2021-12-04] MEDS: ALPRAZolam 0.25 MG TABLET GTUBE SCH ×2 (08:36→12:29)
[2021-12-04 11:11] VITALS: BP 105/53; PULSE 53; TEMP 97.7; O2SAT 98
[2021-12-04 13:43] LABS: Influenza A PCR Negative (Negative); Influenza B PCR Negative (Negative); Resp. Syncytial Virus PCR Negative (Negative)
[2021-12-04 13:56] LABS: SARS-CoV-2 by PCR (In House) Negative (Negative)
== END 2021-12-04 15:48 | DRG 378 ==
LOC: 3ANU → SUATTDRO 19:11
PROVIDERS: ADMIT Internal Medicine; ATTEND Student in an Organized Health Care Education/Training Program